=== PATIENT | male | born 2000 | race Caucasian/White ===

== ENCOUNTER → 2025-02-10 | Outpatient (CLI) | payer MEDICARE, MEDICAID ==
[2025-02-10 18:20] LABS: HEMATOCRIT 48.8 % (42.0-52.0); HEMOGLOBIN 16.2 g/dl (13.5-17.5); MEAN CORPUSCULAR HGB CONC 33.2 g/dl (32.0-36.5); MEAN CORPUSCULAR VOLUME 87.3 fl (80.0-96.0); PLATELET COUNT, AUTOMATED 302 10^3/uL (150-450); RED BLOOD COUNT 5.59 10^6/uL (4.30-6.10); WHITE BLOOD COUNT 7.3 10^3/uL (4.0-10.0)
[2025-02-10 18:33] LABS: HEMOGLOBIN A1c 5.1 % (4.0-6.0)
[2025-02-10 18:52] LABS: ALBUMIN 4.3 G/DL (3.2-5.2); ALKALINE PHOSPHATASE 178 U/L (40-129); ALT/SGPT 50 U/L (7.0-40); AST/SGOT 23 U/L (<34); BILIRUBIN,TOTAL 0.2 MG/DL (0.3-1.2); BLOOD UREA NITROGEN 18 MG/DL (9-23); CALCIUM LEVEL 9.4 MG/DL (8.5-10.1); CARBON DIOXIDE LEVEL 27 MMOL/L (20-31); CHLORIDE LEVEL 102 MMOL/L (98-107); GLOMERULAR FILTRATION RATE > 60.0 (>60); GLUCOSE, FASTING 96 MG/DL (60-100); POTASSIUM SERUM 4.2 MMOL/L (3.5-5.1); SODIUM LEVEL 139 MMOL/L (136-145); TOTAL PROTEIN 7.7 G/DL (5.7-8.2)
[2025-02-10 18:53] LABS: THYROID STIMULATING HORMONE 2.461 uIU/ML (0.55-4.78)
[2025-02-10 19:00] LABS: HEPATITIS B SURFACE ANTIBODY NEGATIVE (POSITIVE)
[2025-02-10 19:12] LABS: HEPATITIS B SURFACE ANTIGEN NEGATIVE (NEGATIVE)
[2025-02-10 19:24] LABS: HIV 1&2 SCREEN NEGATIVE (NEGATIVE)
[2025-02-10 19:32] LABS: HEPATITIS C VIRUS ABY INDEX 0.04 INDEX (<0.8)
== END ==
LOC: M WUC 15:26
PROVIDERS: ATTEND Internal Medicine
DX: Z00.00 Encounter for general adult medical examination without abnormal findings (principal); Z79.899 Other long term (current) drug therapy; Z11.59 Encounter for screening for other viral diseases

== ENCOUNTER → 2025-03-03 | Outpatient (CLI) | payer MEDICARE, MEDICAID ==
[2025-03-03 10:09] LABS: ALBUMIN 3.8 G/DL (3.2-5.2); ALKALINE PHOSPHATASE 160 U/L (40-129); ALT/SGPT 65 U/L (7.0-40); AST/SGOT 23 U/L (<34); BILIRUBIN,DIRECT < 0.1 MG/DL (<0.4); BILIRUBIN,TOTAL 0.3 MG/DL (0.3-1.2); TOTAL PROTEIN 7.2 G/DL (5.7-8.2)
== END ==
LOC: M LAB 09:10
PROVIDERS: ATTEND Internal Medicine
DX: R94.5 Abnormal results of liver function studies (principal)

== ENCOUNTER 2025-05-31 16:16 | Inpatient (IN) | payer MEDICARE, MEDICAID ==
[~2025-05-31] VITALS: Ht 182.9 cm; Wt 103.6 kg
[2025-05-31 16:57] LABS: PLATELET COUNT, AUTOMATED 250 10^3/uL (150-450)
[2025-05-31] MEDS ORDERED: CLON-412 PO (17:07)
[2025-05-31] MEDS ORDERED: OXCA600T8 PO (17:07)
[2025-05-31] MEDS ORDERED: ERYT2GEL TOP (17:07)
[2025-05-31] MEDS ORDERED: HYDR50CA2 PO (17:07)
[2025-05-31] MEDS ORDERED: QUET50TA4 PO (17:07)
[2025-05-31] MEDS ORDERED: GUAN1TAB18 PO (17:07)
[2025-05-31] MEDS ORDERED: CONC27TA4 PO (17:07)
[2025-05-31] MEDS ORDERED: INVE234I IM (17:10)
[2025-05-31] MEDS ORDERED: HOME MED LIST COMPLETE! XX SCH (17:15)
[2025-05-31 17:23] LABS: ETHYL ALCOHOL (ETHANOL) < 0.003 % (0.000-0.010)
[2025-05-31 17:24] LABS: ALT/SGPT 59 U/L (7.0-40); AST/SGOT 35 U/L (<34); CALCIUM LEVEL 9.5 MG/DL (8.5-10.1); CARBON DIOXIDE LEVEL 27 MMOL/L (20-31); CHLORIDE LEVEL 103 MMOL/L (98-107); CREATININE FOR GFR 0.75 MG/DL (0.70-1.30); GLOMERULAR FILTRATION RATE > 90.0 (>60); POTASSIUM SERUM 4.2 MMOL/L (3.5-5.1); SALICYLATE LEVEL < 3.0 MG/DL (<30); SODIUM LEVEL 141 MMOL/L (136-145)
[2025-05-31] MEDS ORDERED: MOM 30 ML SUSPENSION UDC PO PRN (18:35)
[2025-05-31] MEDS ORDERED: OLANZapine ORAL DISINTEGRATING TAB 5MG PO PRN (18:35)
[2025-05-31] MEDS ORDERED: traZODone 50 MG TAB PO PRN (18:35)
[2025-05-31] MEDS ORDERED: ACETAMINOPHEN 325 MG TAB PO PRN (18:35)
[2025-05-31] MEDS ORDERED: MAALOX 30 ML SUSP *UDC PO PRN (18:35)
[2025-05-31] MEDS ORDERED: IBUPROFEN 400 MG TAB PO PRN (18:35)
[2025-05-31 19:02] LABS: AMPHETAMINES LEVEL URINE NEGATIVE (NEGATIVE); BARBITURATES URINE NEGATIVE (NEGATIVE)
[2025-05-31 19:03] LABS: BENZODIAZEPINES URINE NEGATIVE (NEGATIVE); CANNABINOIDS URINE NEGATIVE (NEGATIVE); COCAINE METABOLITE URINE NEGATIVE (NEGATIVE); METHADONE URINE NEGATIVE (NEGATIVE); OPIATES URINE NEGATIVE (NEGATIVE); PHENCYCLIDINE URINE NEGATIVE (NEGATIVE)
[2025-06-01 06:31] VITALS: BP 136/82; TEMP 97.7; O2SAT 98
[2025-06-01] MEDS: PALIPERIDONE 3MG ER TAB PO SCH (11:31)
[2025-06-01] MEDS: ERYTHROMYCIN 2 % GEL 30 GM TOP SCH (13:59)
[2025-06-01] MEDS: PALIPERIDONE PAL 234MG/1.5ML INJ (FREE PSY INPT ONLY) IM ONE (14:15)
[2025-06-01 18:35] VITALS: BP 106/57; TEMP 96.9; O2SAT 95
[2025-06-01] MEDS: QUEtiapine FUMARATE 50MG TAB PO SCH (22:57)
[2025-06-02 06:08] VITALS: BP 123/63; TEMP 96.2; O2SAT 99
[2025-06-02 08:30] LABS: CHOLESTEROL LEVEL 173.0 MG/DL (<200); CHOLESTEROL RISK RATIO 4.66 (<5); LDL CHOLESTEROL 114.3 MG/DL (<100); NON-HDL-C 135.9 MG/DL; TRIGLYCERIDES LEVEL 108.0 MG/DL (<150)
[2025-06-02 14:53] VITALS: BP 132/72; TEMP 97.9; O2SAT 96
[2025-06-02 20:35] VITALS: BP 137/66
[2025-06-03 06:22] VITALS: BP 128/72; TEMP 97
[2025-07-01] MEDS ORDERED: PALIPERIDONE PAL 234MG/1.5ML INJ (FREE PSY INPT ONLY) IM SCH (09:00)
== END 2025-06-03 09:14 | disposition home or self-care (01) | DRG 885 ==
LOC: M ED 16:16 → M ED INP 18:32 → M PSY 23:01
PROVIDERS: ADMIT Student in an Organized Health Care Education/Training Program; ATTEND Student in an Organized Health Care Education/Training Program
DX: F31.9 Bipolar disorder, unspecified (principal); F84.0 Autistic disorder; F90.9 Attention-deficit hyperactivity disorder, unspecified type; R45.1 Restlessness and agitation; Z79.2 Long term (current) use of antibiotics; Z79.899 Other long term (current) drug therapy